=== PATIENT | female | born 1945 | race African-American/Black ===

== ENCOUNTER 2019-08-19 09:50 | Inpatient (IN) | payer MEDICARE, OTHER ==
--- NOTE | 2019-08-15 11:09 | Diagnostic Imaging Report ---
EXAMINATION: CHEST 2 VIEWS INDICATION: Pre-operative COMPARISON: None FINDINGS: LINES/TUBES:Left chest pacer. LUNGS:The lungs are well-inflated. No focal consolidation or pulmonary edema. PLEURA:No pleural effusion or pneumothorax. MEDIASTINUM:The cardiomediastinal silhouette appears normal in size and shape. BONES/SOFT TISSUES:No acute osseous injury. ABDOMEN:No free air under the diaphragm. IMPRESSION: No focal pneumonia or pulmonary edema. Signed by: Suellen Lau MD on 08/15/2019 11:06 AM
[2019-08-15 11:17] LABS: BLOOD UREA NITROGEN 15 mg/dL (7-26); BUN/CREATININE RATIO 16 (6-25); CALCIUM 9.8 mg/dL (8.4-10.2); CARBON DIOXIDE 23 mmol/L (22-29); CHLORIDE 108 mmol/L (98-107); CREATININE, SERUM 0.96 mg/dL (0.57-1.11); EST GLOMERULAR FILTRATION RATE > 60 ML/MIN (60-); GLUCOSE 96 mg/dL (74-118); SODIUM 139 mmol/L (136-145)
[2019-08-15 11:35] LABS: BASOPHILS % 0.7 % (0.0-1.0); EOSINOPHILS # (AUTO) 0.1 (0.0-0.4); EOSINOPHILS % 1.7 % (0.0-6.0); HEMATOCRIT 38.1 % (34.2-44.1); HEMOGLOBIN 12.2 g/dL (12.0-16.0); LYMPHOCYTES # (AUTO) 1.9 (1.0-3.2); LYMPHOCYTES % 33.7 % (18.0-39.1); MEAN CORPUSCULAR HEMOGLOBIN 28.2 pg (28-32); MEAN CORPUSCULAR VOLUME 88.2 fL (81-99); MONOCYTES # (AUTO) 0.4 (0.2-0.8); MONOCYTES % 6.4 % (4.4-11.3); NEUTROPHILS # (AUTO) 3.3 (2.1-6.9); NEUTROPHILS % 57.3 % (38.7-80.0); PLATELET COUNT 206 x10e3/uL (140-360); RED BLOOD COUNT 4.32 x10e6/uL (3.6-5.1); RED CELL DISTRIBUTION WIDTH 13.1 % (11.7-14.4)
[~2019-08-19] VITALS: Ht 162.6 cm; Wt 142.9 kg
[~2019-08-19 09:50] MED LIST: ACETAMINOPHEN 1000 MG/100 ML 100 ML IV ONE; ALDACTONE25 MG PO; LASIX40 MG PO; LEXAPRO20 MG PO; LIDOCAINE HCL (LTA) 4 ML SOLN ONE; LOSARTAN POTAS100 MG PO; METOPROLOL TART50 MG PO; PERCOCET 5-3251 EACH PO; PROAIR HFA INH8.5 GM INH; SCOPOLAMINE 1.5 MG PATCH ONE; SINGULAIR10 MG PO; SUGAMMADEX SODIUM 200 MG/2 ML VIAL IV ONE; TEMAZEPAM15 MG PO
[2019-08-19] MEDS ORDERED: BUPIVACAINE 0.25% 30ML SDV INJ ONE (10:19)
[2019-08-19] MEDS ORDERED: CEFAZOLIN SOD 1 GM/NS 50ML 100 ML IV ONE (10:19)
[2019-08-19] MEDS ORDERED: FENTANYL CITRATE/PF 100MCG/2 ML INJ ONE ×2 (13:08→18:41)
[2019-08-19] MEDS ORDERED: HYDRALAZINE HCL 20 MG/ML VIAL ONE (13:28)
[2019-08-19] MEDS ORDERED: HYDROMORPHONE 1MG/1ML INJ ONE (13:35)
[2019-08-19] MEDS ORDERED: METOCLOPRAMIDE HCL 10 MG/2ML VIAL ONE (13:37)
[2019-08-19] MEDS ORDERED: ONDANSETRON HCL INJ 2MG/ML 2ML 2 MG/ML VIAL ONE ×2 (13:37→19:46)
[2019-08-19] MEDS ORDERED: PROMETHAZINE HCL (IM) 25 MG/ML VIAL ONE (14:31)
--- NOTE | 2019-08-19 14:43 | NUR ---
RECEIVED PATIENT FROM PACU. PATIENT A/O X3, EVEN RESPIRATIONS ON 2LNC. LUNG SOUNDS CLEAR. 5 TROCAR SITES TO ABDOMEN C/D/I. SCD'S BILATERALLY. RAC 20 GAUGE IV WITH NS @ 125 CC/HR. ORIENTED PATIENT TO ROOM AND CALL LIGHT. BED LOW, WHEELS LOCKED, SIDE RAILS X2. CALL LIGHT IN REACH WILL CONTINUE TO MONITOR PATIENT.
[2019-08-19 15:00] VITALS: BP 177/81
[2019-08-19 15:14] VITALS: BP 177/81
[2019-08-19] MEDS ORDERED: SCOPOLAMINE 1.5 MG PATCH TOP SCH (15:30)
[2019-08-19] MEDS: SODIUM CHLORIDE 0.9% 1000ML 1,000 ML IV SCH ×2 (16:10→23:53)
[2019-08-19 16:26] VITALS: BP 177/81
[2019-08-19] MEDS ORDERED: HYDRALAZINE HCL 20 MG/ML VIAL IV PRN (17:45)
--- NOTE | 2019-08-19 18:35 | Operative Report ---
DATE OF PROCEDURE: 08/19/2019 SURGEON: Giovani Munoz MD PREOPERATIVE DIAGNOSES: 1. Morbid obesity, BMI 56. 2. Hypertension. POSTOPERATIVE DIAGNOSES: 1. Morbid obesity, BMI 56. 2. Hypertension. PREOPERATIVE INDICATION: Treat disease, prevent complications related to comorbid conditions of obesity. PROCEDURES: Laparoscopic vertical sleeve gastrectomy. ANESTHESIA: General. CREATIVE/ART DIRECTOR: Lorenzo Childers, rehab assistant (needed due to complexity of case). FLUIDS: 1 L crystalloid. ESTIMATED BLOOD LOSS: 20 mL. DRAINS: None. COMPLICATIONS: None. SPECIMENS: Partial stomach. GRAFTS: None. FINDINGS: 1. Adhesions. 2. Negative intraoperative leak test. PROCEDURE IN DETAIL: The patient was brought to the operating room and was intubated under general endotracheal anesthesia. She was sterilely prepped and draped in the usual fashion. A preprocedure pause was performed identifying the patient, use of perioperative antibiotics, intended procedure, and staff surgeon. Access was gained via a 5 mm left subcostal incision using a Veress needle. The abdomen was insufflated to a pressure of 15 mm pressure. Four additional trocars were placed in standard position. Liver retractor was used to expose the stomach and hiatus. I mobilized a greater curvature stomach by ligated the gastroepiploic, short gastric, posterior short gastric vessels using the [place] LigaSure device from about 3 cm proximal to the pyloric valve to the left erika of the diaphragm. There was some adhesions, which were lysed near the fundus of the stomach from her prior lap band removal. We then inserted a 32-Chinese suctioning bougie along the lesser curvature of stomach. The greater curvature of the stomach was resected with 6 firings of a 60 mm purple load Covidien stapling device, which was reinforced with TRS. Once this was complete, we did conduct a leak test, no leaks were identified. The specimen was removed through the right periumbilical port site. The port site was closed with 0 Vicryl suture using a Laurent Black technique. We then verified hemostasis, removed the liver retractor and desufflated the abdomen. Incision sites were closed with 4-0 Monocryl suture in a subcuticular fashion. Dermabond dressings were applied. A 0.25% bupivacaine was used both at the preperitoneal incision sites. The patient tolerated the procedure well. Type of wound was type 2, clean, contaminated. All surgical sponge and instrument counts were correct. MD DODIE Dougherty/MITCHELLL /[id number]
[2019-08-19] MEDS ORDERED: MIDAZOLAM HCL 2 MG/2 ML VIAL ONE (18:41)
[2019-08-19] MEDS ORDERED: PROPOFOL IV EMULSION 10 MG/ML 20 ML VIAL ONE (19:46)
[2019-08-19] MEDS ORDERED: LIDOCAINE HCL 2% LOCAL INJ 5 ML SDV VIAL INJ ONE (19:46)
[2019-08-19] MEDS ORDERED: DEXAMETHASONE SOD PHOS INJ 4 MG/ML VIAL ONE (19:46)
[2019-08-19] MEDS ORDERED: SEVOFLURANE INHAL SOLN 250 ML PEN BTL ONE (19:46)
[2019-08-19] MEDS ORDERED: ROCURONIUM BROMIDE 10 MG/ML 5ML VIAL IV ONE (19:46)
[2019-08-19] MEDS: ONDANSETRON HCL INJ 2MG/ML 2ML 2 MG/ML VIAL IV PRN (19:49)
[2019-08-19] MEDS: MORPHINE SULFATE 2 MG/ML SYR 1ML IV PRN (19:49)
[2019-08-19 20:00] VITALS: BP 167/77
[2019-08-19] MEDS: ENOXAPARIN SOD INJ 40 MG/0.4 ML SYR SC SCH (21:00)
[2019-08-19 22:00] VITALS: BP 167/77
--- NOTE | 2019-08-19 22:00 | NUR ---
RECEIVED BEDSIDE SHIFT REPORT FROM NIGHT RN. PT ALERT AND ORIENTED X3. S/P GASTRIC SLEVE. ON 08/18. 5 TROCHAR SITES DRY AND INTACT. NPO XICE CHIPS. 02 AT 2L PER N/C. RESPIRATIONS EVEN AND UNLABORED. PIV 20 G RT AC- SITE HEALTHY. NS INFUSING AT 125 ML/HR. SCD ON. CALL LIGHT WITHIN REACH. BED LOCKED AND IN LOW POSITION. PT AMBULATE TO BATHROOM WITH ONE ASSIST.
[2019-08-20] VITALS (8 sets, daily range): BP systolic 160–188; BP diastolic 70–84
[2019-08-20] MEDS: ONDANSETRON HCL INJ 2MG/ML 2ML 2 MG/ML VIAL IV PRN ×3 (02:18→15:40)
[2019-08-20] MEDS: MORPHINE SULFATE 2 MG/ML SYR 1ML IV PRN (02:24)
[2019-08-20 06:48] LABS: BASOPHILS % 0.1 % (0.0-1.0); HEMATOCRIT 38.8 % (34.2-44.1); HEMOGLOBIN 11.9 g/dL (12.0-16.0); LYMPHOCYTES # (AUTO) 0.8 (1.0-3.2); LYMPHOCYTES % 6.3 % (18.0-39.1); MEAN CORPUSCULAR HEMOGLOBIN 27.7 pg (28-32); MEAN CORPUSCULAR HGB CONC 30.7 g/dL (31-35); MEAN CORPUSCULAR VOLUME 90.4 fL (81-99); MONOCYTES # (AUTO) 0.5 (0.2-0.8); NEUTROPHILS # (AUTO) 10.7 (2.1-6.9); NEUTROPHILS % 89.3 % (38.7-80.0); PLATELET COUNT 178 x10e3/uL (140-360); RED BLOOD COUNT 4.29 x10e6/uL (3.6-5.1); RED CELL DISTRIBUTION WIDTH 13.4 % (11.7-14.4)
--- NOTE | 2019-08-20 07:00 | NUR ---
RECEIVED PATIENT RESTING IN BED NO S/S OF DISTRESS. BED LOW, WHEELS LOCKED, SIDE RAILS X2. CALL LIGHT IN REACH WILL CONTINUE TO MONITOR PATIENT.
[2019-08-20 07:08] LABS: ALBUMIN 3.7 g/dL (3.5-5.0); ALBUMIN/GLOBULIN RATIO 0.9 (0.8-2.0); ANION GAP 16.8 mmol/L (8-16); CALCIUM 9.2 mg/dL (8.4-10.2); CREATININE, SERUM 1.28 mg/dL (0.57-1.11); MAGNESIUM 1.4 MG/DL (1.3-2.1); POTASSIUM 4.8 mmol/L (3.5-5.1)
[2019-08-20] MEDS ORDERED: HYDROCODONE/APAP 7.5MG-325MG 1 EA TAB PO PRN (07:30)
--- NOTE | 2019-08-20 07:52 | NUR ---
PAGED DR. TREVIÑO FOR ORDERS.
--- NOTE | 2019-08-20 09:14 | NUR ---
PROGRESS NOTE S: No major complaints O: AF, VSS; General- no distress Abd- soft, incisions c/d/i A/P: POD 1, s/p Lap sleeve gastrectomy -Ambulate, IS, OOB to chair -Clear liquids -Lovenox for home x 2 weeks -DC home if tolerating liquids and ambulating -F/u in [address] Munoz
[2019-08-20] MEDS: ENOXAPARIN SOD INJ 40 MG/0.4 ML SYR SC SCH ×2 (09:36→16:35)
[2019-08-20] MEDS: FUROSEMIDE 40 MG TAB PO SCH (09:36)
[2019-08-20] MEDS: LOSARTAN POTASSIUM 100 MG TAB PO SCH (09:36)
[2019-08-20] MEDS: SODIUM CHLORIDE 0.9% 1000ML 1,000 ML IV SCH ×2 (09:36→15:40)
[2019-08-20] MEDS: SPIRONOLACTONE 25 MG TAB PO SCH (09:36)
[2019-08-20] MEDS: ESCITALOPRAM OXALATE 10 MG TAB PO SCH (09:36)
[2019-08-20] MEDS: METOPROLOL TARTRATE 25 MG TAB PO SCH ×2 (09:36→16:35)
[2019-08-20] MEDS: OXYCODONE/ACETAMINOPHEN 5-325 1 EACH TABLET PO PRN ×2 (09:36→22:02)
--- NOTE | 2019-08-20 09:36 | NUR ---
PATIENT VOMITED 150 CC OF GREEN/BROWN EMESIS. MEDICATED PATIENT WITH ZOFRAN.
--- NOTE | 2019-08-20 12:54 | NUR ---
Nutrition Screen Note RD Recommendation for Physician: - Advancement of diet per MD Plan of Care: RD following, monitoring for tolerance and adequacy - Diet education provided 08/19 Nutrition reason for involvement: MD Consult- post op diet progression education Primary Diagnose(s): lap sleeve gastrectomy PMH: no H&P available Ht: 64 in Wt: 315 lb BMI: 54.1 kg/m2 IBW: [address] Assessment: (08/19) 74 YOF admitted for lap sleeve gastrectomy, pt seen today per diet education consult. Pt receptive to diet education at time of visit. Pt educated on diet progression of clear liquids to full liquids and pureed diets. Pt educated on adequate fluid/water intake and appropriate protein supplementation as well as vitamin and mineral recommendations. Pt educated on dumping syndrome and advised to avoid concentrated sweets. All questions and concerns addressed at time of visit, handouts provided. Chart reviewed. Labs and meds reviewed. Will continue to monitor. Current Diet: bariatric clear liquids Malnutrition Evaluation (08/20/19) The patient does not meet criteria for a specified degree of malnutrition at this time. Will re-evaluate at follow-up as appropriate. Diet Education Needs Assessment: Diet education indicated, pt receptive and diet education provided 08/19. Learner(s): pt Barriers: none Cultural/Language Modifications: none Readiness: ready Method: handouts, discussion Topics: post operative lap sleeve gastrectomy diet progression, protein supplements, MVI Understanding/Compliance: good Diet tolerance: not tolerating CL diet currently Nutrition Care Level: low Signed: Fifi Gonzales RD, LD, [facility]
--- NOTE | 2019-08-20 19:15 | NUR ---
BEDSIDE SHIFT REPORT RECEIVED FROM DAY RN. 5 TROCHAR SITES ON ABDOMEN DRY AND INTACT. PT IS ALERT AND ORIENTED X3. RESPIRATIONS EVEN AND UNLABORED. 02 AT 2.5 L PEER N/C. LUNGS ARE CLEAR. PT AMBULATE TO BATHROOM WITH ONE ASSIST. BILATEERAL LOWER EXTREMITIES EDEMATOUS. PRASANNA HOSE REMOVED PER PT REQUEST TOO TIGHT. 20 G PIV INFUSING VIA RT AC. PT TOLERATING FULL LIQUID DIET. CALL LIGHT WITHIN REACH. BED IN LOW POSITION.
[2019-08-20] MEDS ORDERED: TEMAZEPAM 15 MG CAP PO SCH (21:00)
[2019-08-20] MEDS ORDERED: MONTELUKAST SODIUM 10 MG TAB PO SCH (21:00)
[2019-08-21] VITALS: BP 172/78
[2019-08-21 04:00] VITALS: BP 155/69
[2019-08-21] MEDS: ONDANSETRON HCL INJ 2MG/ML 2ML 2 MG/ML VIAL IV PRN (04:03)
--- NOTE | 2019-08-21 04:14 | NUR ---
PT C/O OF NAUSEA. pt report not eatting. zofraN GIVEN ORDERED. WILL MONITOR PO- WHAT TOLERATED.
[2019-08-21] MEDS: SODIUM CHLORIDE 0.9% 1000ML 1,000 ML IV SCH ×2 (07:30→09:25)
[2019-08-21 07:46] VITALS: BP 159/70
--- NOTE | 2019-08-21 08:20 | NUR ---
pt c/o nausea and constipation; paging Dr. Blair for orders.
[2019-08-21 08:38] VITALS: BP 159/70
--- NOTE | 2019-08-21 09:09 | NUR ---
spoke with Dr. Blair who states pt can have Zofran and wants Brandi ordered to give pt for constipations. states if pt still constipated by tomorrow, pt can take Dulcolax suppository. wants pt discharged by Dr. Krish Bowles today unless any other medical reason to keep pt.
[2019-08-21 09:17] LABS: BASOPHILS # (AUTO) 0.1 (0.0-0.1); BASOPHILS % 0.5 % (0.0-1.0); EOSINOPHILS # (AUTO) 0.1 (0.0-0.4); EOSINOPHILS % 0.5 % (0.0-6.0); HEMATOCRIT 39.1 % (34.2-44.1); HEMOGLOBIN 12.1 g/dL (12.0-16.0); LYMPHOCYTES # (AUTO) 1.4 (1.0-3.2); LYMPHOCYTES % 13.4 % (18.0-39.1); MEAN CORPUSCULAR HEMOGLOBIN 27.8 pg (28-32); MEAN CORPUSCULAR HGB CONC 30.9 g/dL (31-35); MEAN CORPUSCULAR VOLUME 89.7 fL (81-99); MONOCYTES # (AUTO) 0.6 (0.2-0.8); MONOCYTES % 5.6 % (4.4-11.3); NEUTROPHILS # (AUTO) 8.2 (2.1-6.9); NEUTROPHILS % 79.9 % (38.7-80.0); PLATELET COUNT 188 x10e3/uL (140-360); RED BLOOD COUNT 4.36 x10e6/uL (3.6-5.1); RED CELL DISTRIBUTION WIDTH 13.2 % (11.7-14.4)
[2019-08-21] MEDS ORDERED: SENNOSIDES 8.6 MG TAB PO SCH (09:30)
[2019-08-21] MEDS: ESCITALOPRAM OXALATE 10 MG TAB PO SCH (09:34)
[2019-08-21] MEDS: LOSARTAN POTASSIUM 100 MG TAB PO SCH (09:35)
[2019-08-21] MEDS: SPIRONOLACTONE 25 MG TAB PO SCH (09:36)
[2019-08-21] MEDS: FUROSEMIDE 40 MG TAB PO SCH (09:36)
[2019-08-21] MEDS: METOPROLOL TARTRATE 25 MG TAB PO SCH (09:36)
[2019-08-21] MEDS: OXYCODONE/ACETAMINOPHEN 5-325 1 EACH TABLET PO PRN (09:37)
[2019-08-21] MEDS: ENOXAPARIN SOD INJ 40 MG/0.4 ML SYR SC SCH (09:38)
[2019-08-21 09:52] LABS: ALBUMIN 3.7 g/dL (3.5-5.0); ALBUMIN/GLOBULIN RATIO 0.9 (0.8-2.0); ANION GAP 13.4 mmol/L (8-16); CALCIUM 9.1 mg/dL (8.4-10.2); CREATININE, SERUM 1.17 mg/dL (0.57-1.11); POTASSIUM 4.4 mmol/L (3.5-5.1)
--- NOTE | 2019-08-21 10:10 | NUR ---
Pt. expressed no spiritual or emotional concerns. [facility] provided hospitality and information on how to reach bag hanger, if needed. No needs to follow at this time. NOREEN VEGA [facility] O: [phone]
[2019-08-21 11:46] VITALS: BP 186/80
[2019-08-21] MEDS ORDERED: LOVENOX40 MG/0.4 SC (11:47)
== END 2019-08-21 13:21 | disposition home or self-care (01) | DRG 621 ==
LOC: OR 09:50 → OBSVTOIN 13:20 → PACU V 13:20 → MED/SURG 14:43
PROC: 0DB64Z3 Excision of Stomach, Percutaneous Endoscopic Approach, Vertical (ICD-10-PCS; principal; 2019-08-19 10:30)
DX: E66.01 Morbid (severe) obesity due to excess calories (principal); Z68.43 Body mass index [BMI] 50.0-59.9, adult; I10 Essential (primary) hypertension; Z95.0 Presence of cardiac pacemaker; M06.9 Rheumatoid arthritis, unspecified; G47.33 Obstructive sleep apnea (adult) (pediatric)
CPT/HCPCS: 36415; 71046; 80048; 80053; 83735; 84100; 85025; 87635; 93005; J0360; J0690; J1100; J1170; J1650; J2001; J2250; J2270; J2405; J2550; J2765; J3010; J7030